=== PATIENT | male | born 1965 | race African-American/Black ===

== ENCOUNTER 2017-04-15 16:48 | Emergency (ER) | payer SELFPAY ==
[~2017-04-15] VITALS: Ht 175.3 cm; Wt 87.0 kg
[2017-04-15 21:04] LABS: BASOPHILS % 0.5 % (0.0-2.0); EOSINOPHILS % 3.1 % (0.0-5.0); HEMATOCRIT. 45.6 % (42.0-52.0); HEMOGLOBIN. 16.1 g/dL (14.0-18.0); LYMPHOCYTES % 24.9 % (20.0-50.0); MEAN CORPUSCULAR HEMOGLOBIN 33.2 pg (28.0-32.0); MEAN CORPUSCULAR VOLUME 94.3 fL (80.0-94.0); MEAN PLATELET VOLUME 9.2 fl (7.4-10.4); MONOCYTES % 12.3 % (2.0-8.0); NEUTROPHILS % 59.2 % (40.0-76.0); PLATELET 159 x1000/uL (130-400); RED BLOOD CELL COUNT 4.83 mill/uL (4.7-6.1)
[2017-04-15 21:07] LABS: CHLORIDE 104 mEq/L (98-107)
[2017-04-15 21:15] LABS: CARBON DIOXIDE 30 mEq/L (21-32)
[2017-04-15] MEDS ORDERED: MECLIZINE 25MG TABLET PO ONE (21:30)
[2017-04-15 22:09] VITALS: BP 117/75
== END 2017-04-15 22:22 | disposition home or self-care (01) ==
LOC: ER 16:48 → EDSEX 16:48 → ER 22:22
DX: R42 Dizziness and giddiness (principal); Z88.1 Allergy status to other antibiotic agents
CPT/HCPCS: 36415; 80053; 85025; 93005; 99285; J8597

== ENCOUNTER 2019-05-06 11:08 | Emergency (ER) | payer OTHER ==
[~2019-05-06] VITALS: Ht 165.1 cm; Wt 87.0 kg
[2019-05-06 11:42] VITALS: BP 119/66
[2019-05-06] MEDS ORDERED: METHOCARBAMOL 750MG TABLET PO SCH (14:00)
[2019-05-06] MEDS ORDERED: ACETAMINOPHEN 500MG TABLET PO ONE (14:00)
== END 2019-05-06 15:15 | disposition home or self-care (01) ==
LOC: ER 11:08
DX: M54.5 Low back pain (principal)
CPT/HCPCS: 99283

== ENCOUNTER 2019-07-21 08:07 | Emergency (ER) | payer OTHER ==
[~2019-07-21] VITALS: Ht 175.3 cm; Wt 90.0 kg
[2019-07-21] MEDS ORDERED: HYDROCODONE/ACETAMINOPHEN 5/325MG TABLET PO ONE (08:30)
[2019-07-21 09:22] VITALS: BP 109/78
== END 2019-07-21 09:50 | disposition home or self-care (01) ==
LOC: ER 09:41
DX: K08.89 Other specified disorders of teeth and supporting structures (principal); K00.7 Teething syndrome; M32.9 Systemic lupus erythematosus, unspecified; Z88.1 Allergy status to other antibiotic agents
CPT/HCPCS: 99283